=== PATIENT | male | born 1975 | race Two or more races ===

== ENCOUNTER → 2022-08-17 13:19 | Outpatient (BNVA) | payer SELFPAY | PROVIDERS: Visit Provider Internal Medicine | DX: Z02.79 Encounter for issue of other medical certificate (principal) ==

== ENCOUNTER 2023-08-09 11:10 | Outpatient (AMB) | payer OTHER, SELFPAY ==
--- NOTE | 2023-08-09 11:19 | MHC.PC.OV ---
Vital Signs 08/09/23 11:20 08/09/23 11:54 Height 5 ft 10 in Weight 335 lb BMI 48.1 BP 160/102 H 150/100 H Blood Pressure Location Lt brachial Position Sitting Pulse 97 Pulse Source Pulse Oximeter Pulse Oximetry (%) 97 Oxygen Delivery Method Room Air Intake Visit Reasons: New patient-requesting physical Intake Note: New patient, physical request Talent Coordinator Required: No Accompanied by: Self / Same As Patient Allergies CT dye Allergy (Unknown, Uncoded 08/09/23 11:33) shellfish allergy nuts Allergy (Unknown, Uncoded 08/09/23 11:33) itching shellfish Allergy (Unknown, Uncoded 08/09/23 11:33) unknown, +allergy test Medication List - Last Reconciled 08/09/23 by Eddie Blas PA-C No Known Home Meds Tobacco use date assessed: 08/09/23 Dental Screening Dental Screen Date: 08/09/23 Did you have a dental visit in the last 12 months?: Yes Did you have a dental problem in the last 6 months where you did not have access to dental care?: No Was dental information given to patient?: Patient has dentist HPI New patient-requesting physical HPI Details Patient is a 47-year-old male here today for re-establishing care/ annual physical. Patient's past medical history significant for hypertension, obesity, Torres. .. Obesity: Patient noted elevated BMI of 48.1. He does understand his diet has been very poor. Has been able to lose a significant amount of weight in the past with reducing his carbohydrates and sugar in his diet. .. Elevated blood pressure: Noted elevated blood pressure readings today in office. Likely related to his obesity. Not interested in starting medication at this time would like to work on lifestyle modifications Colon cancer screening: Will be considering colonoscopy .. Vaccines: Up-to-date with COVID vaccine, needs new tetanus vaccine, considering flu vaccine PFSH Surgical History No pertinent past surgical history Family History Mother Hypertension Mental health disorder Father Diabetes Social History (Updated 08/09/23 @ 11:39 by Eddie Blas PA-C) Housing: House Alcohol intake: never Patient Tobacco Use Status: Never used Tobacco e-Cigarette/Vaping Use: Never Used Second Hand Smoke Exposure: No service: No Current occupational status: employed Current occupation: [employer] Current occupational exposures/hazards: No Cognitive needs: No Hearing needs: No Vision needs: No Questionnaire PHQ-9 Over the last 2 weeks, how often have you been bothered by any of the following problems? 1. Little interest or pleasure in doing things: not at all 2. Feeling down, depressed, or hopeless: not at all 3. Trouble falling or staying asleep, or sleeping too much: not at all 4. Feeling tired or having little energy: not at all 5. Poor appetite or overeating: not at all 6. Feeling bad about yourself - or that you are a failure or have let yourself or your family down: not at all 7. Trouble concentrating on things, such as reading the newspaper or watching television: not at all 8. Moving or speaking so slowly that other people could have noticed. Or the opposite - being so fidgety or restless that you have been moving around a lot more than usual: not at all 9. Thoughts that you would be better off or of hurting yourself in some way: not at all Total score: 0 Depression Screening Interpretation: Negative [id number] - PHQ-9 Billing: Yes Source: Developed by Drs. Danny Connolly, Ramonita Flores, Woody Buchanan and colleagues, with an educational cleopatra from [employer]. Thrive Questionnaire Date Thrive assessed: 08/09/23 I am a: Patient What is your living situation today?: I have a steady place to live Within the past 12 months, did the food you bought not last and you didn't have the money to get more?: Never true Within the past 12 months, did you worry whether your food would run out before you got money to buy more?: Never true Do you have trouble paying for medicines?: No Do you have trouble getting transportation to medical appointments?: No Do you have trouble paying your heating and electricity bill?: No Do you have trouble taking care of your child, family member or friend?: No Do you have trouble with day-to-day activities such as bathing, preparing meals, shopping, managing finances, etc.?: No Are you currently unemployed and looking for a job?: No Are you interested in more education?: No Please select the resources that you would like help with: None Currently or been in a relationship where the following occur: no concerns reported AUDIT C Alcohol Use Questionnaire (AUDIT-C) 1. How often do you have a drink containing alcohol?: Never Total Score: 0 SUBHASH-7 AMB Questionnaire SUBHASH-7 Date SUBHASH - 7 assessed: 08/09/23 Feeling nervous, anxious, or on edge: 0 = Not at all Not being able to stop or control worryin = Not at all Worrying too much about different things: 0 = Not at all Trouble relaxin = Not at all Being so restless that it is hard to sit still: 0 = Not at all Becoming easily annoyed or irritable: 0 = Not at all Feeling afraid as if something awful might happen: 0 = Not at all Total SUBHASH-7 score (0-4 normal; 5-9 mild; 10-14 moderate; 15-21 severe): 0 Source: Developed by Drs. Danny Connolly, Ramonita Flores, Woody Buchanan and colleagues, with an educational cleopatra from [employer]. Review of Systems Const Denies body aches, Denies chills, Denies excessive sweating, Denies fatigue, Denies fever(s) and Denies headache(s) Eyes Denies blurry vision ENT Denies dysphagia, Denies vertigo, Denies dizziness, Denies headache(s), Denies hearing loss and Denies tinnitus Card Denies chest pain, Denies chest pain with activity, Denies syncope, Denies irregular heart rhythm and Denies dyspnea Resp Denies chest congestion, Denies cough, Denies hemoptysis, Denies dyspnea and Denies wheezing GI Denies abdominal pain, Denies melena, Denies hematochezia, Denies coffee ground emesis, Denies dysphagia, Denies diarrhea, Denies nausea and Denies vomiting Denies difficulty urinating, Denies dysuria, Denies urinary frequency, Denies urinary hesitancy and Denies urinary urgency Musc Denies arthralgias, Denies limited range of motion, Denies muscle cramps and Denies muscle weakness Skin/Breast Denies rash and Denies skin ulcer Neuro Denies Abnormal speech present, Denies confusion, Denies vertigo, Denies dizziness, Denies syncope, Denies headache(s), Denies memory loss and Denies seizure-like activity Psych Denies anxiety, Denies confusion, Denies depression, Denies memory loss, Denies panic attacks and Denies paranoia Endo Denies excessive sweating, Denies fatigue, Denies flushing, Denies polydipsia and Denies polyuria Aller/Immun Denies wheezing Physical exam (Primary Care) Vital Signs: Last Vital Signs Pulse 97 08/09/23 11:20 BP 150/100 H 08/09/23 11:54 Pulse Ox 97 08/09/23 11:20 Oxygen Delivery Method Room Air 08/09/23 11:20 BMI result Body Mass Index 48.1 BMI Assessment/Plan discussion: High Tobacco/Smoking Status: Tobacco use Status Tobacco use date assessed 08/09/23 08/09/23 11:27 Patient Tobacco Use Status Never used Tobacco 08/09/23 11:39 e-Cigarette/Vaping Use Never Used 08/09/23 11:39 PHQ-9: PHQ-9 Score PHQ-9: Total score 0 08/09/23 16:23 Depression Screening Interpretation: Negative Thrive Assessment: Date of Thrive Assessment Date Thrive assessed 08/09/23 08/09/23 11:27 Currently or been in a relationship where the following occur: no concerns reported Const Other: Morbidly obese General: cooperative, comfortable, no acute distress, alert and awake; No confusion Orientation/consciousness: oriented to person, oriented to place, patient oriented x3 and No confusion HENMT Head: Yes normocephalic Ears: external ears normal and TM's normal bilaterally Face and sinus: No sinus tenderness Mouth: Normal oral and palatal mucosa present and tongue normal Teeth and gingiva: dentition normal and gingiva normal Throat: Yes posterior oropharynx normal, Yes tonsils normal and Yes uvula midline Eyes Conjunctivae: conjunctivae normal Sclerae: sclerae normal Pupils: Equal, round and reactive pupils present EOM: EOMs intact bilaterally Direct Ophthalmoscopy: No no photophobia Neck Neck: Yes no lymphadenopathy, No tender and Yes no JVD Thyroid: Thyroid normal Carotids: no bruits Chest Chest palpation & inspection: no tenderness Resp Effort & Inspection: normal respiratory effort, no audible wheezes, not labored and no stridor Auscultation: no crackles, no rales, no rhonchi and no wheezes Cardio Jugular venous distension: no JVD Rate: regular rate, not bradycardic and not tachycardic Rhythm: regular rhythm Bruits: no carotid bruits Peripheral pulses: Peripheral pulses 2+ throughout GI Inspection: Yes normal to inspection, No abdominal wall ecchymosis and No visible herniation Palpation (GI): Soft to palpation, nontender, no guarding, not rigid and No hepatosplenomegaly present Auscultation: normoactive bowel sounds General: Yes no CVA tenderness Back/Spine/Pelvis Back: no CVA tenderness and No back tenderness Cervical Spine: cervical ROM normal Thoracic/Lumbar Spine: thoracic and lumbar spine normal to inspection, straight leg raise negative bilaterally, No thoraco-lumbar ROM limited and No lumbar spinal tenderness Skin Lesions: no lesions Rashes: no rashes Wounds: no wounds Neuro General: oriented to person, oriented to place, patient oriented x3, CN's II-XI intact bilaterally and No confusion Cranial nerves: Yes Equal, round and reactive pupils present and Yes Normal accommodation reflex present Cognition (Neuro): normal cognition Speech: No Abnormal speech present Gait exam (Neuro): Normal gait present Motor exam (neuro): 5/5 motor strength present throughout Extrem Right upper extremity: full ROM; no cyanosis Left upper extremity: full ROM; no cyanosis Right lower extremity: no edema Left lower extremity: no edema Psych Appearance: grossly normal Mental Status: mental status grossly normal Affect: normal affect Attitude: cooperative Thought process: Normal thought process present Assessment and Plan Assessment & Plan (1) Annual physical exam: Code(s): Z00.00 - Encounter for general adult medical examination without abnormal findings (2) Obese: Code(s): E66.9 - Obesity, unspecified Qualifiers: Body mass index: BMI 45.0-49.9 Obesity classification: adult class 3 (BMI >= 40) Obesity type: due to excess calories Serious obesity comorbidity presence: without serious comorbidity Qualified Code(s): E66.01 - Morbid (severe) obesity due to excess calories; Z68.42 - Body mass index [BMI] 45.0-49.9, adult Plan: Patient does understand his BMI is well over 40 will work on being more physically active and adapting to better eating habits to reduce his weight. (3) Elevated blood pressure reading: Code(s): R03.0 - Elevated blood-pressure reading, without diagnosis of hypertension Plan: Noted elevated blood pressure readings today in office. Has had history of elevated blood pressure readings. Not interested in starting blood pressure medication at this time would like to work on lifestyle modifications on reducing his high blood pressure. Goal blood pressure to be below 140/90 (4) Screening for diabetes mellitus (DM): Code(s): Z13.1 - Encounter for screening for diabetes mellitus Orders: Orders Comprehensive [facility]. Panel Fast Today Z13.1 - Encounter for screening for diabetes mellitus TDaP Immunization 08/09/23 E66.01 - Morbid (severe) obesity due to excess calories, Z23 - Encounter for immunization, Z68.42 - Body mass index [BMI] 45.0-49.9, adult Complete Blood Count no Diff Today Z13.1 - Encounter for screening for diabetes mellitus ABO RH Type Today E66.01 - Morbid (severe) obesity due to excess calories, Z68.42 - Body mass index [BMI] 45.0-49.9, adult Medications: New Boostrix Tdap (diphth,pertus(acell),tetanus) 0.5 mL IM ONCE 0.5 mL 0RF NS E66.01 - Morbid (severe) obesity due to excess calories, Z23 - Encounter for immunization, Z68.42 - Body mass index [BMI] 45.0-49.9, adult Coding Level of Care Code New Pt Prev Care 40-64y(67556) Diagnoses Annual physical exam Z00.00 Class 3 severe obesity due to excess calories without serious comorbidity with body mass index (BMI) of 45.0 to 49.9 in adult E66.01; Z68.42 Body mass index: BMI 45.0-49.9 Obesity classification: adult class 3 (BMI >= 40) Obesity type: due to excess calories Serious obesity comorbidity presence: without serious comorbidity Elevated blood pressure reading R03.0 Screening for diabetes mellitus (DM) Z13.1
[2023-08-09 11:20] VITALS: BP 160/102; PULSE 97; O2SAT 97; BMI 48.1
[2023-08-09 11:54] VITALS: BP 150/100
== END 2023-08-09 11:57 | disposition home or self-care (01) ==
PROVIDERS: PCP Physician Assistant; Visit Provider Physician Assistant
DX: Z00.00 Encounter for general adult medical examination without abnormal findings (principal); E66.01 Morbid (severe) obesity due to excess calories; Z68.42 Body mass index [BMI] 45.0-49.9, adult; R03.0 Elevated blood-pressure reading, without diagnosis of hypertension; Z13.1 Encounter for screening for diabetes mellitus
CPT/HCPCS: 99386

== ENCOUNTER 2023-08-13 07:18 | Outpatient (REF) | payer OTHER, SELFPAY ==
[2023-08-13 08:05] LABS: Hematocrit 50.7 % (42.0-52.0); Hemoglobin 17.3 g/dl (14.0-18.0); Mean Corpuscular HGB Conc 34.1 g/dl (31.0-36.0); Mean Corpuscular Hemoglobin 29.1 pg (27.0-33.0); Mean Corpuscular Volume 85.4 fL (80.0-98.0); Mean Platelet Volume 10.2 fL (9.4-12.4); Platelet Count 300 X10*3/uL (160-400); Red Blood Count 5.94 X10*6/uL (4.60-5.80); Red Cell Distribution Width 12.5 % (11.0-16.0); White Blood Count 8.2 X10*3/uL (4.8-10.8)
[2023-08-13 08:25] LABS: Alanine Aminotransferase 62 U/L (0-40); Alkaline Phosphatase 50 U/L (39-117); Anion Gap 14 (12-20); Aspartate Amino Transferase 28 U/L (5-37); Bilirubin Total 0.9 mg/dL (0.0-1.0); Blood Urea Nitrogen 14 mg/dL (9-16); Calcium 9.9 mg/dL (8.4-10.2); Carbon Dioxide 22 mmol/L (22-29); Chloride 108 mmol/L (96-108); Estimated Glomerular Filt Rate > 60; Glucose Fasting 113 mg/dL (60-99); Potassium 3.8 mmol/L (3.3-5.1); Sodium 140 mmol/L (135-145); Total Protein 6.8 g/dL (6.5-8.0)
== END 2023-08-13 07:19 | disposition home or self-care (01) ==
LOC: HO.LAB 07:18
PROVIDERS: PCP Physician Assistant; Visit Provider Physician Assistant
DX: E66.01 Morbid (severe) obesity due to excess calories (principal); Z68.42 Body mass index [BMI] 45.0-49.9, adult; Z13.1 Encounter for screening for diabetes mellitus
CPT/HCPCS: 36415; 80053; 85027; 86900; 86901

== ENCOUNTER 2023-10-09 11:43 | Outpatient (AMB) | payer OTHER, SELFPAY ==
[2023-10-09 11:44] VITALS: BP 168/90; PULSE 96; O2SAT 98; BMI 47.2
--- NOTE | 2023-10-09 11:44 | MHC.PC.OV ---
Vital Signs 10/09/23 11:44 10/09/23 12:42 Height 5 ft 10 in Weight 329 lb BMI 47.2 BP 168/90 H 145/99 H Blood Pressure Location Lt brachial Position Sitting Pulse 96 Pulse Source Pulse Oximeter Pulse Oximetry (%) 98 Oxygen Delivery Method Room Air Intake Visit Reasons: f/u blood pressure / weight Educational Technologist Required: No Accompanied by: Self / Same As Patient Allergies CT dye Allergy (Unknown, Uncoded 10/09/23 12:27) shellfish allergy nuts Allergy (Unknown, Uncoded 10/09/23 12:27) itching shellfish Allergy (Unknown, Uncoded 10/09/23 12:27) unknown, +allergy test Medication List - Last Reconciled 10/09/23 by Eddie Blas PA-C amlodipine 5 mg PO DAILY 30 days Tobacco use date assessed: 08/09/23 Dental Screening Dental Screen Date: 10/09/23 Did you have a dental visit in the last 12 months?: Yes Did you have a dental problem in the last 6 months where you did not have access to dental care?: No Was dental information given to patient?: Patient has dentist HPI f/u blood pressure / weight HPI Details Patient is a 48-year-old male here today for follow-up visit Patient's past medical history significant for hypertension, obesity, Torres. .. Obesity: Has lost a few lb since last office visit. He reduced his serial intake and has been trying to be more physically active. He otherwise admits that overall his diet is poor. He is not interested in weight management program Hypertension: Patient was started on amlodipine for his high blood pressure. Today in office blood pressure still elevated. PLAN: Will increase his dose of amlodipine to 10 mg Laboratory Tests 02/07/19 02/07/19 08/13/23 07:41 07:41 07:37 RBC Hgb 17.3 Fasting Glucose 96 Hgb A1c (Clinic) ALT 55 H 62 H Alkaline Phosphata se 50 08/13/23 10/09/23 07:37 12:24 RBC 5.94 H Hgb Fasting Glucose 113 H Hgb A1c (Clinic) 5.5 ALT Alkaline Phosphata se PFSH Surgical History No pertinent past surgical history Family History Mother Hypertension Mental health disorder Father Diabetes Housing: House Alcohol intake: never Patient Tobacco Use Status: Never used Tobacco e-Cigarette/Vaping Use: Never Used Second Hand Smoke Exposure: No service: No Current occupational status: employed Current occupation: [employer] Current occupational exposures/hazards: No Cognitive needs: No Hearing needs: No Vision needs: No Questionnaire Thrive Questionnaire Date Thrive assessed: 08/09/23 SUBHASH-7 AMB Questionnaire SUBHASH-7 Date SUBHASH - 7 assessed: 08/09/23 Source: Developed by Drs. aDnny Connolly, Ramonita Flores, Woody Buchanan and colleagues, with an educational cleopatra from [employer]. Review of Systems Const Denies headache(s) Eyes Denies loss of vision ENT Denies vertigo, Denies dizziness, Denies headache(s) and Denies sore throat Card Denies chest pain, Denies leg edema and Denies lightheadedness Resp Denies cough, Denies hemoptysis and Denies wheezing GI Denies abdominal pain, Denies melena, Denies constipation, Denies diarrhea and Denies vomiting Denies dysuria, Denies urinary frequency and Denies urinary urgency Musc Denies arthralgias, Denies joint swelling, Denies numbness and Denies tingling Neuro Denies Abnormal speech present, Denies behavioral changes, Denies vertigo, Denies dizziness, Denies headache(s), Denies loss of vision, Denies memory loss, Denies numbness and Denies tingling Psych Denies anxiety, Denies behavioral changes, Denies depression, Denies memory loss and Denies panic attacks Monster/Lymph Denies easy bleeding and Denies easy bruising Aller/Immun Denies wheezing Physical exam (Primary Care) Vital Signs: Last Vital Signs Pulse 96 10/09/23 11:44 BP 145/99 H 10/09/23 12:42 Pulse Ox 98 10/09/23 11:44 Oxygen Delivery Method Room Air 10/09/23 11:44 BMI result Body Mass Index 47.2 BMI Assessment/Plan discussion: High Tobacco/Smoking Status: Tobacco use Status Tobacco use date assessed 09/21/23 11/21/23 11:45 Patient Tobacco Use Status Never used Tobacco 10/09/23 11:45 e-Cigarette/Vaping Use Never Used 10/09/23 11:45 Thrive Assessment: Date of Thrive Assessment Date Thrive assessed 08/09/23 10/09/23 11:45 Const Other: Morbidly obese General: no acute distress, alert and awake Nutritional Appearance: well nourished Orientation/consciousness: oriented to person, oriented to place and oriented to time HENMT Ears: TM's normal bilaterally General nose exam: Normal nasal mucous membranes and turbinates present Eyes Conjunctivae: conjunctivae normal Sclerae: sclerae normal Pupils: Equal, round and reactive pupils present Neck Neck: Yes no lymphadenopathy and Yes no JVD Thyroid: Thyroid normal Carotids: no bruits Resp Effort & Inspection: normal respiratory effort and not tachypneic Auscultation: no crackles, no rales, no rhonchi and no wheezes Cardio Rate: regular rate Rhythm: regular rhythm Heart sounds: no murmurs and normal S1 and S2 GI Palpation (GI): Soft to palpation, nontender, no hepatomegaly and no splenomegaly Auscultation: normal bowel sounds Skin General skin exam: no rashes or lesions noted and dry skin Neuro General: oriented to person, oriented to place and oriented to time Cranial nerves: Yes Equal, round and reactive pupils present Speech: No Abnormal speech present Gait exam (Neuro): Normal gait present Motor exam (neuro): no tremor noted Extrem Right upper extremity: full ROM Left upper extremity: full ROM Right lower extremity: full ROM; no edema Left lower extremity: full ROM; no edema Psych Mental Status: mental status grossly normal Speech and movement: Normal speech and movement present Affect: normal affect Attitude: cooperative Thought process: Normal thought process present Results AMB Hemoglobin A1c AMB Hemoglobin A1c 5.5 % Last Edit by NAVNEET Zhu on 10/09/23 12:24 Results Reviewed Results Reviewed: Laboratory Last Values Hgb A1c (Clinic) 5.5 % (4.0-6.0) 10/09/23 12:24 Assessment and Plan Assessment & Plan (1) HTN (hypertension): Code(s): I10 - Essential (primary) hypertension Qualifiers: Hypertension type: primary hypertension Qualified Code(s): I10 - Essential (primary) hypertension Plan: Patient's blood pressure elevated today in office. Will increase his dose of amlodipine to maximal dose 10 mg. Advised to continue monitoring his blood pressure at home. Also advised on lifestyle modifications on reducing sugars and salt in his diet. Goal blood pressures to be below 140/90 (2) Obese: Code(s): E66.9 - Obesity, unspecified Qualifiers: Body mass index: BMI 45.0-49.9 Obesity classification: adult class 3 (BMI >= 40) Obesity type: due to excess calories Serious obesity comorbidity presence: without serious comorbidity Qualified Code(s): E66.01 - Morbid (severe) obesity due to excess calories; Z68.42 - Body mass index [BMI] 45.0-49.9, adult Plan: Patient does understand his BMI is well over 40 will continue working on being more physically active and adapting to better eating habits to reduce his weight. Again he is not interested in speaking with a dietitian or professional weight management program as he believes he can lose weight on his own. Orders: Orders AMB Hemoglobin A1c 10/09/23 Z13.1 - Encounter for screening for diabetes mellitus Medications: New amlodipine 10 mg PO DAILY 90 days 90 tabs 1RF I10 - Essential (primary) hypertension Discontinued amlodipine Discontinued Reason: Doctor's Order 5 mg PO DAILY 30 days 30 tabs 1RF I10 - Essential (primary) hypertension Coding Level of Care Code Est Pt Level 4 (70694) Diagnoses Primary hypertension I10 Hypertension type: primary hypertension Class 3 severe obesity due to excess calories without serious comorbidity with body mass index (BMI) of 45.0 to 49.9 in adult E66.01; Z68.42 Body mass index: BMI 45.0-49.9 Obesity classification: adult class 3 (BMI >= 40) Obesity type: due to excess calories Serious obesity comorbidity presence: without serious comorbidity
[2023-10-09 12:42] VITALS: BP 145/99
== END 2023-10-09 12:47 | disposition home or self-care (01) ==
PROVIDERS: PCP Physician Assistant; Visit Provider Physician Assistant
DX: Z13.1 Encounter for screening for diabetes mellitus (principal)
CPT/HCPCS: 83036; 99214

== ENCOUNTER 2024-02-07 08:14 | Outpatient (AMB) | payer OTHER, SELFPAY ==
--- NOTE | 2024-02-07 08:22 | A.OFFPC_ITS ---
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 Accompanied by: Self / Same As Patient Allergies amlodipine Adverse Reaction (Intermediate, Verified 02/07/24 08:34) ineffective CT dye Allergy (Unknown, Uncoded 02/07/24 08:29) shellfish allergy nuts Allergy (Unknown, Uncoded 02/07/24 08:29) itching shellfish Allergy (Unknown, Uncoded 02/07/24 08:29) unknown, +allergy test Medication List - Last Reconciled 02/07/24 by Eddie Blas PA-C amlodipine 10 mg PO DAILY 90 days Tobacco use date assessed: 02/07/24 Dental Screening Dental Screen Date: 02/07/24 Did you have a dental visit in the last 12 months?: No Did you have a dental problem in the last 6 months where you did not have access to dental care?: No Was dental information given to patient?: Patient has dentist HPI f/u weight check / HTN HPI Details Patient is a 48-year-old male here today for follow-up visit Patient's past medical history significant for hypertension, obesity, Torres. .. Obesity: Has gained a few lb since last office visit. He reduced his serial intake and has been trying to be more physically active. He otherwise admits that overall his diet is poor. He is not interested in weight management program Hypertension: Patient was started on amlodipine for his high blood pressure. He has been monitoring his blood pressure at home and still getting readings 140s to 160s systolic. Stopped using amlodipine feels his blood pressures are a bit better 150 systolic. Today in office blood pressure still elevated. PLAN: He would like to work extensively on lifestyle modifications as he is questioning whether blood pressure medications are causing him side effects. [facility] Surgical History No pertinent past surgical history Family History Mother Hypertension Mental health disorder Father Diabetes Social History Housing: House Alcohol intake: never Patient Tobacco Use Status: Never used Tobacco e-Cigarette/Vaping Use: Never Used Second Hand Smoke Exposure: No service: No Current occupational status: employed Current occupation: [employer] Current occupational exposures/hazards: No Cognitive needs: No Hearing needs: No Vision needs: No Questionnaire PHQ-9 Over the last 2 weeks, how often have you been bothered by any of the following problems? 1. Little interest or pleasure in doing things: not at all 2. Feeling down, depressed, or hopeless: not at all 3. Trouble falling or staying asleep, or sleeping too much: not at all 4. Feeling tired or having little energy: not at all 5. Poor appetite or overeating: not at all 6. Feeling bad about yourself - or that you are a failure or have let yourself or your family down: not at all 7. Trouble concentrating on things, such as reading the newspaper or watching television: not at all 8. Moving or speaking so slowly that other people could have noticed. Or the opposite - being so fidgety or restless that you have been moving around a lot more than usual: not at all 9. Thoughts that you would be better off or of hurting yourself in some way: not at all Total score: 0 Depression Screening Interpretation: Negative Depression Screening Done: Yes 12022 - PHQ-9 Billing: Yes Source: Developed by Drs. Danny Connolly, Ramonita Flores, Woody Buchanan and colleagues, with an educational cleopatra from [employer]. Thrive Questionnaire Date Thrive assessed: 02/07/24 I am a: Patient What is your living situation today?: I have a steady place to live Within the past 12 months, did the food you bought not last and you didn't have the money to get more?: Never true Within the past 12 months, did you worry whether your food would run out before you got money to buy more?: Never true Do you have trouble paying for medicines?: No Do you have trouble getting transportation to medical appointments?: No Do you have trouble paying your heating and electricity bill?: No Do you have trouble taking care of your child, family member or friend?: No Do you have trouble with day-to-day activities such as bathing, preparing meals, shopping, managing finances, etc.?: No Are you currently unemployed and looking for a job?: No Are you interested in more education?: No Please select the resources that you would like help with: None THRIVE Score: 0 AUDIT C Alcohol Use Questionnaire (AUDIT-C) 1. How often do you have a drink containing alcohol?: Never Total Score: 0 SUBHASH-7 AMB Questionnaire SUBHASH-7 Date SUBHASH - 7 assessed: 02/07/24 Feeling nervous, anxious, or on edge: 0 = Not at all Not being able to stop or control worryin = Not at all Worrying too much about different things: 0 = Not at all Trouble relaxin = Not at all Being so restless that it is hard to sit still: 0 = Not at all Becoming easily annoyed or irritable: 0 = Not at all Feeling afraid as if something awful might happen: 0 = Not at all Total SUBHASH-7 score (0-4 normal; 5-9 mild; 10-14 moderate; 15-21 severe): 0 Source: Developed by Drs. Danny Connolly, Ramonita Flores, Woody Buchanan and colleagues, with an educational cleopatra from [employer]. SUBHASH-7 Assessment Billing SUBHASH-7 Assessment Tool: SUBHASH-7 Assessment 05643 Review of Systems Const Denies headache(s) Eyes Denies loss of vision ENT Denies vertigo, Denies dizziness, Denies headache(s) and Denies sore throat Card Denies chest pain, Denies leg edema and Denies lightheadedness Resp Denies cough, Denies hemoptysis and Denies wheezing GI Denies abdominal pain, Denies melena, Denies constipation, Denies diarrhea and Denies vomiting Denies dysuria, Denies urinary frequency and Denies urinary urgency Musc Denies arthralgias, Denies joint swelling, Denies numbness and Denies tingling Neuro Denies Abnormal speech present, Denies behavioral changes, Denies vertigo, Denies dizziness, Denies headache(s), Denies loss of vision, Denies memory loss, Denies numbness and Denies tingling Psych Denies anxiety, Denies behavioral changes, Denies depression, Denies memory loss and Denies panic attacks Monster/Lymph Denies easy bleeding and Denies easy bruising Aller/Immun Denies wheezing Physical exam (Primary Care) Vital Signs: Last Vital Signs BP 142/90 H 02/07/24 08:23 BMI result Body Mass Index 48.1 Tobacco/Smoking Status: Tobacco use Status Tobacco use date assessed 02/07/24 02/07/24 08:28 Patient Tobacco Use Status Never used Tobacco 02/07/24 08:28 e-Cigarette/Vaping Use Never Used 02/07/24 08:28 PHQ-9: PHQ-9 Score PHQ-9: Total score 0 02/07/24 08:33 Depression Screening Interpretation: Negative Thrive Assessment: Date of Thrive Assessment Date Thrive assessed 02/07/24 02/07/24 08:28 Const General: healthy appearing, no acute distress, alert and awake Nutritional Appearance: well nourished Orientation/consciousness: oriented to person, oriented to place and oriented to time HENMT Ears: TM's normal bilaterally General nose exam: Normal nasal mucous membranes and turbinates present Eyes Conjunctivae: conjunctivae normal Sclerae: sclerae normal Pupils: Equal, round and reactive pupils present Neck Neck: Yes no lymphadenopathy and Yes no JVD Thyroid: Thyroid normal Carotids: no bruits Resp Effort & Inspection: normal respiratory effort and not tachypneic Auscultation: no crackles, no rales, no rhonchi and no wheezes Cardio Rate: regular rate Rhythm: regular rhythm Heart sounds: no murmurs and normal S1 and S2 GI Palpation (GI): Soft to palpation, nontender, no hepatomegaly and no splenomegaly Auscultation: normal bowel sounds Skin General skin exam: no rashes or lesions noted and dry skin Neuro General: oriented to person, oriented to place and oriented to time Cranial nerves: Yes Equal, round and reactive pupils present Speech: No Abnormal speech present Gait exam (Neuro): Normal gait present Motor exam (neuro): no tremor noted Extrem Right upper extremity: full ROM Left upper extremity: full ROM Right lower extremity: full ROM; no edema Left lower extremity: full ROM; no edema Psych Mental Status: mental status grossly normal Speech and movement: Normal speech and movement present Affect: normal affect Attitude: cooperative Thought process: Normal thought process present Assessment and Plan Assessment & Plan (1) HTN (hypertension): Code(s): I10 - Essential (primary) hypertension Qualifiers: Hypertension type: primary hypertension Qualified Code(s): I10 - Essential (primary) hypertension Plan: Patient's blood pressure remains elevated today in office. Advised on transitioning to a new blood pressure medication namely lisinopril 5 mg though patient declines at this time. He will like to work extensively on lifestyle modifications/ dietary modifications to lose weight to control his blood pressure. Advised on low-sodium and low sugar diet. Advised to continue monitoring blood pressure with goal blood pressure to be below 140/90. Will call if he decides he wants to try lisinopril to manage his blood pressure. Will follow-up with patient 8 weeks to evaluate his blood pressure readings and if still remains consistently above 140/90 will strongly consider starting new blood pressure medication. (2) Obese: Code(s): E66.9 - Obesity, unspecified Qualifiers: Obesity type: due to excess calories Obesity classification: adult class 3 (BMI >= 40) Serious obesity comorbidity presence: without serious comorbidity Body mass index: BMI 45.0-49.9 Qualified Code(s): E66.01 - Morbid (severe) obesity due to excess calories; Z68.42 - Body mass index [BMI] 45.0- 49.9, adult Plan: He does understand his BMI is over 40, unfortunately gained weight since last office visit. He does admit to some dietary indiscretion with sugar. He does not do any formal physical activity. He does have a somewhat physically demanding job. Orders: Orders Microalbumin, Random (w Creat) Today I10 - Essential (primary) hypertension Comprehensive [place]. Panel Fast Today I10 - Essential (primary) hypertension Prostate Specific Antigen Scr Today I10 - Essential (primary) hypertension, Z12.5 - Encounter for screening for malignant neoplasm of prostate Referrals Gastroenterology Referral Z12.11 - Encounter for screening for malignant neoplasm of colon Medications: Discontinued amlodipine Discontinued Reason: Doctor's Order 10 mg PO DAILY 90 days 90 tabs 1RF I10 - Essential (primary) hypertension Coding Level of Care Code Est Pt Level 4 (18366) Diagnoses Primary hypertension I10 Hypertension type: primary hypertension Class 3 severe obesity due to excess calories without serious comorbidity with body mass index (BMI) of 45.0 to 49.9 in adult E66.01; Z68.42 Obesity type: due to excess calories Obesity classification: adult class 3 (BMI >= 40) Serious obesity comorbidity presence: without serious comorbidity Body mass index: BMI 45.0-49.9 Additional Codes SUBHASH-7 Assessment Billing - SUBHASH-7 Assessment Tool: SUBHASH-7 Assessment 54266 ([id number])
[2024-02-07 08:23] VITALS: BP 142/90; BMI 48.1
== END 2024-02-07 09:20 | disposition home or self-care (01) ==
PROVIDERS: PCP Physician Assistant; Visit Provider Physician Assistant
DX: I10 Essential (primary) hypertension (principal); E66.01 Morbid (severe) obesity due to excess calories; Z68.42 Body mass index [BMI] 45.0-49.9, adult
CPT/HCPCS: 99214

== ENCOUNTER 2024-03-27 08:40 | Outpatient (REF) | payer OTHER, SELFPAY ==
[2024-03-27 10:39] LABS: Alanine Aminotransferase 55 U/L (0-40); Albumin Level 3.9 g/dL (3.5-5.0); Alkaline Phosphatase 56 U/L (39-117); Anion Gap 10 (12-20); Aspartate Amino Transferase 26 U/L (5-37); Bilirubin Total 0.5 mg/dL (0.0-1.0); Blood Urea Nitrogen 15 mg/dL (9-16); Calcium 9.9 mg/dL (8.4-10.2); Carbon Dioxide 24 mmol/L (22-29); Chloride 106 mmol/L (96-108); Estimated Glomerular Filt Rate > 60; Glucose Fasting 99 mg/dL (60-99); Potassium 4.3 mmol/L (3.3-5.1); Sodium 136 mmol/L (135-145); Total Protein 6.5 g/dL (6.5-8.0)
[2024-03-27 10:58] LABS: Prostate Specific Antigen Scr 1.13 ng/mL (<0.05-4.0)
[2024-03-27 11:23] LABS: Creatinine Urine 152.05 mg/dL; Microalbum/Creatinine Ratio Ur 3.2 ug/mg cr (<30)
== END 2024-03-27 08:41 | disposition home or self-care (01) ==
LOC: HO.LAB 08:40
PROVIDERS: PCP Physician Assistant; Visit Provider Physician Assistant
DX: Z12.5 Encounter for screening for malignant neoplasm of prostate (principal); I10 Essential (primary) hypertension
CPT/HCPCS: 36415; 80053; 82043; 82570; 84153

== ENCOUNTER 2024-04-03 08:38 | Outpatient (AMB) | payer OTHER, SELFPAY ==
[2024-04-03 08:49] VITALS: BP 120/84; PULSE 77; O2SAT 98; BMI 48.5
--- NOTE | 2024-04-03 08:49 | A.OFFPC_ITS ---
Vital Signs 04/03/24 08:49 Height 5 ft 10 in Weight 338 lb 2 oz BMI 48.5 BP 120/84 Blood Pressure Location Lt brachial Position Sitting Pulse 77 Pulse Source Pulse Oximeter Pulse Oximetry (%) 98 Oxygen Delivery Method Room Air Intake Visit Reasons: f/u HTN Intake Note: Patient is here to follow up on HTN and lab results. 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 Patient's past medical history significant for hypertension, obesity, Torres. .. Obesity: Has gained a few lb since last office visit. He reduced his serial intake and has been trying to be more physically active. He otherwise admits that overall his diet is poor. He is not interested in weight management program Hypertension: Patient was started on amlodipine for his high blood pressure. He has been monitoring his blood pressure at home and still getting readings 140s to 160s systolic. Stopped using amlodipine feels his blood pressures are a bit lobito. He is started using be extra-axial juice and feels that is helping his blood pressure.. Today blood pressure in office much improved. Otherwise he denies any headaches, chest pain, palpitations or dizziness. PLAN: He would like to work extensively on lifestyle modifications as he is questioning whether blood pressure medications are causing him side effects. Laboratory Tests 08/13/23 03/27/24 07:37 09:02 Fasting Glucose 113 H 99 [facility] Surgical History No pertinent past surgical history Family History Mother Hypertension Mental health disorder Father Diabetes Social History Housing: House Alcohol intake: never Patient Tobacco Use Status: Never used Tobacco e-Cigarette/Vaping Use: Never Used Second Hand Smoke Exposure: No service: No Current occupational status: employed Current occupation: [employer] Current occupational exposures/hazards: No Cognitive needs: No Hearing needs: No Vision needs: No Questionnaire Thrive Questionnaire Date Thrive assessed: 02/07/24 SUBHASH-7 AMB Questionnaire SUBHASH-7 Date SUBHASH - 7 assessed: 02/07/24 Source: Developed by Drs. Danny Connolly, Ramonita Flores, Woody Buchanan and colleagues, with an educational cleopatra from [employer]. Review of Systems Const Denies headache(s) Eyes Denies loss of vision ENT Denies vertigo, Denies dizziness, Denies headache(s) and Denies sore throat Card Denies chest pain, Denies leg edema and Denies lightheadedness Resp Denies cough, Denies hemoptysis and Denies wheezing GI Denies abdominal pain, Denies melena, Denies constipation, Denies diarrhea and Denies vomiting Denies dysuria, Denies urinary frequency and Denies urinary urgency Musc Denies arthralgias, Denies joint swelling, Denies numbness and Denies tingling Neuro Denies Abnormal speech present, Denies behavioral changes, Denies vertigo, Denies dizziness, Denies headache(s), Denies loss of vision, Denies memory loss, Denies numbness and Denies tingling Psych Denies anxiety, Denies behavioral changes, Denies depression, Denies memory loss and Denies panic attacks Monster/Lymph Denies easy bleeding and Denies easy bruising Aller/Immun Denies wheezing Physical exam (Primary Care) Vital Signs: Last Vital Signs Pulse 77 04/03/24 08:49 BP 120/84 04/03/24 08:49 Pulse Ox 98 04/03/24 08:49 Oxygen Delivery Method Room Air 04/03/24 08:49 BMI result Body Mass Index 48.5 Tobacco/Smoking Status: Tobacco use Status Tobacco use date assessed 04/03/24 04/03/24 08:52 Patient Tobacco Use Status Never used Tobacco 04/03/24 08:52 e-Cigarette/Vaping Use Never Used 04/03/24 08:52 Thrive Assessment: Date of Thrive Assessment Date Thrive assessed 02/07/24 04/03/24 08:52 Const General: healthy appearing, no acute distress, alert and awake Nutritional Appearance: well nourished Orientation/consciousness: oriented to person, oriented to place and oriented to time HENMT Ears: TM's normal bilaterally General nose exam: Normal nasal mucous membranes and turbinates present Eyes Conjunctivae: conjunctivae normal Sclerae: sclerae normal Pupils: Equal, round and reactive pupils present Neck Neck: Yes no lymphadenopathy and Yes no JVD Thyroid: Thyroid normal Carotids: no bruits Resp Effort & Inspection: normal respiratory effort and not tachypneic Auscultation: no crackles, no rales, no rhonchi and no wheezes Cardio Rate: regular rate Rhythm: regular rhythm Heart sounds: no murmurs and normal S1 and S2 GI Palpation (GI): Soft to palpation, nontender, no hepatomegaly and no splenomegaly Auscultation: normal bowel sounds Skin General skin exam: no rashes or lesions noted and dry skin Neuro General: oriented to person, oriented to place and oriented to time Cranial nerves: Yes Equal, round and reactive pupils present Speech: No Abnormal speech present Gait exam (Neuro): Normal gait present Motor exam (neuro): no tremor noted Extrem Right upper extremity: full ROM Left upper extremity: full ROM Right lower extremity: full ROM; no edema Left lower extremity: full ROM; no edema Psych Mental Status: mental status grossly normal Speech and movement: Normal speech and movement present Affect: normal affect Attitude: cooperative Thought process: Normal thought process present Assessment and Plan Assessment & Plan (1) HTN (hypertension): Code(s): I10 - Essential (primary) hypertension Qualifiers: Hypertension type: primary hypertension Qualified Code(s): I10 - Essential (primary) hypertension Plan: Patient's blood pressure improved. Has started Beet Juice. He monitors blood pressure at home quite regularly. Does report some high readings in the mornings though in the afternoons normal readings. Will continue on lifestyle modifications to control his blood pressure. He plans on using 30 lb in the next 6 months. (2) Obese: Code(s): E66.9 - Obesity, unspecified Qualifiers: Body mass index: BMI 45.0-49.9 Obesity classification: adult class 3 (BMI >= 40) Obesity type: due to excess calories Serious obesity comorbidity presence: without serious comorbidity Qualified Code(s): E66.01 - Morbid (severe) obesity due to excess calories; Z68.42 - Body mass index [BMI] 45.0- 49.9, adult Plan: He does understand his BMI is over 40, unfortunately gained weight since last office visit. He does admit to some dietary indiscretion with sugar. He does not do any formal physical activity. He does have a somewhat physically demanding job. Orders: Referrals Cologuard Test Z12.11 - Encounter for screening for malignant neoplasm of colon Coding Level of Care Code Est Pt Level 3 (49080) Diagnoses Primary hypertension I10 Hypertension type: primary hypertension Class 3 severe obesity due to excess calories without serious comorbidity with body mass index (BMI) of 45.0 to 49.9 in adult E66.01; Z68.42 Body mass index: BMI 45.0-49.9 Obesity classification: adult class 3 (BMI >= 40) Obesity type: due to excess calories Serious obesity comorbidity presence: without serious comorbidity
== END 2024-04-03 09:27 | disposition home or self-care (01) ==
PROVIDERS: PCP Physician Assistant; Visit Provider Physician Assistant
DX: I10 Essential (primary) hypertension (principal); E66.01 Morbid (severe) obesity due to excess calories; Z68.42 Body mass index [BMI] 45.0-49.9, adult
CPT/HCPCS: 99213

== ENCOUNTER → 2024-08-14 10:45 | Outpatient (BNVA) | payer SELFPAY | PROVIDERS: PCP Physician Assistant; Visit Provider Physician Assistant Medical | DX: Z02.79 Encounter for issue of other medical certificate (principal) ==

== ENCOUNTER 2024-10-07 08:32 | Outpatient (AMB) | payer OTHER, SELFPAY ==
[2024-10-07 08:42] VITALS: BP 138/92; PULSE 78; O2SAT 98; BMI 48.1
--- NOTE | 2024-10-07 08:42 | MHC.PC.OV ---
Vital Signs 10/07/24 08:42 Height 5 ft 10 in Weight 335 lb BMI 48.1 BP 138/92 H Blood Pressure Location Lt brachial Position Sitting Pulse 78 Pulse Source Pulse Oximeter Pulse Oximetry (%) 98 Oxygen Delivery Method Room Air Intake Visit Reasons: f/u Weight check/ blood pressure Allergies amlodipine Adverse Reaction (Intermediate, Verified 10/07/24 08:50) ineffective CT dye Allergy (Unknown, Uncoded 10/07/24 08:50) shellfish allergy nuts Allergy (Unknown, Uncoded 10/07/24 08:50) itching shellfish Allergy (Unknown, Uncoded 10/07/24 08:50) unknown, +allergy test Medication List - Last Reconciled 10/07/24 by Eddie Blas PA-C No Known Home Meds Tobacco use date assessed: 04/03/24 Dental Screening Dental Screen Date: 02/07/24 HPI f/u Weight check/ blood pressure HPI Details Patient is a 49-year-old male here today for follow-up visit. Patient's past medical history significant for hypertension, obesity, Torres. Right heel pain: ongoing right foot pain. The pain began in April, with no known injury or trauma. The patient describes the pain as being located at the bottom of the heel, extending towards the back of the heel, with associated tingling in the toes. Pain is worsened by prolonged standing or walking, and it can result in days where movement is severely limited. The patient has experienced similar symptoms in the past and has previously been diagnosed with plantar fasciitis and tarsal tunnel syndrome, for which a nerve conduction study was performed, and cortisone injections were utilized. However, these interventions did not provide relief, and the symptoms had temporarily resolved before returning in April. Naproxen has been tried with limited relief, and the patient uses various methods like foot massages and hot/cold treatments to self-manage the pain. .. Obesity: Has gained a few lb since last office visit. He reduced his serial intake and has been trying to be more physically active. He otherwise admits that overall his diet is poor. He is not interested in weight management program Hypertension: Stopped using amlodipine feels his blood pressures are a bit better. He is started using be beet juice and feels that is helping his blood pressure. Unfortunately the beach who has had gotten to expensive. Today blood pressure in office elevated.. Otherwise he denies any headaches, chest pain, palpitations or dizziness. PLAN: Willing to try low-dose lisinopril for better blood pressure control. [facility] Surgical History No pertinent past surgical history Family History Mother Hypertension Mental health disorder Father Diabetes Social History Housing: House Alcohol intake: never Patient Tobacco Use Status: Never used Tobacco Tobacco use type: Cigarette e-Cigarette/Vaping Use: Never Used Second Hand Smoke Exposure: No service: No Current occupational status: employed Current occupation: [employer] Current occupational exposures/hazards: No Cognitive needs: No Hearing needs: No Vision needs: No Questionnaire PHQ-9 Over the last 2 weeks, how often have you been bothered by any of the following problems? 1. Little interest or pleasure in doing things: not at all 2. Feeling down, depressed, or hopeless: not at all 3. Trouble falling or staying asleep, or sleeping too much: not at all 4. Feeling tired or having little energy: not at all 5. Poor appetite or overeating: not at all 6. Feeling bad about yourself - or that you are a failure or have let yourself or your family down: not at all 7. Trouble concentrating on things, such as reading the newspaper or watching television: not at all 8. Moving or speaking so slowly that other people could have noticed. Or the opposite - being so fidgety or restless that you have been moving around a lot more than usual: not at all 9. Thoughts that you would be better off or of hurting yourself in some way: not at all Total score: 0 Depression Screening Interpretation: Negative Depression Screening Done: Yes 40415 - PHQ-9 Billing: Yes Source: Developed by Drs. Danny Connolly, Ramonita Flores, Woody Buchanan and colleagues, with an educational cleopatra from [employer]. Thrive Questionnaire Date Thrive assessed: 02/07/24 AUDIT C Alcohol Use Questionnaire (AUDIT-C) 1. How often do you have a drink containing alcohol?: Never Total Score: 0 SUBHASH-7 AMB Questionnaire SUBHASH-7 Date SUBHASH - 7 assessed: 02/07/24 Source: Developed by Drs. Danny Connolly, Ramonita Flores, Woody Buchanan and colleagues, with an educational cleopatra from [employer]. Review of Systems Const Denies headache(s) Eyes Denies loss of vision ENT Denies vertigo, Denies dizziness, Denies headache(s) and Denies sore throat Card Denies chest pain, Denies leg edema and Denies lightheadedness Resp Denies cough, Denies hemoptysis and Denies wheezing GI Denies abdominal pain, Denies melena, Denies constipation, Denies diarrhea and Denies vomiting Denies dysuria, Denies urinary frequency and Denies urinary urgency Musc Denies arthralgias, Denies joint swelling, Denies numbness and Denies tingling Neuro Denies Abnormal speech present, Denies behavioral changes, Denies vertigo, Denies dizziness, Denies headache(s), Denies loss of vision, Denies memory loss, Denies numbness and Denies tingling Psych Denies anxiety, Denies behavioral changes, Denies depression, Denies memory loss and Denies panic attacks Monster/Lymph Denies easy bleeding and Denies easy bruising Aller/Immun Denies wheezing Physical exam (Primary Care) Vital Signs: Last Vital Signs Pulse 78 10/07/24 08:42 BP 138/92 H 10/07/24 08:42 Pulse Ox 98 10/07/24 08:42 Oxygen Delivery Method Room Air 10/07/24 08:42 BMI result Body Mass Index 48.1 BMI Assessment/Plan discussion: High BMI High, discussed plan: lifestyle, weight reduction, dietary and physical activity Tobacco/Smoking Status: Tobacco use Status Tobacco use date assessed 04/03/24 10/07/24 08:48 Patient Tobacco Use Status Never used Tobacco 10/07/24 08:48 Tobacco use type Cigarette 10/07/24 08:48 e-Cigarette/Vaping Use Never Used 10/07/24 08:48 PHQ-9: PHQ-9 Score PHQ-9: Total score 0 10/07/24 08:51 Depression Screening Interpretation: Negative Thrive Assessment: Date of Thrive Assessment Date Thrive assessed 02/07/24 10/07/24 08:48 Const General: healthy appearing, no acute distress, alert and awake Nutritional Appearance: well nourished Orientation/consciousness: oriented to person, oriented to place and oriented to time HENMT Ears: TM's normal bilaterally General nose exam: Normal nasal mucous membranes and turbinates present Eyes Conjunctivae: conjunctivae normal Sclerae: sclerae normal Pupils: Equal, round and reactive pupils present Neck Neck: Yes no lymphadenopathy and Yes no JVD Thyroid: Thyroid normal Carotids: no bruits Resp Effort & Inspection: normal respiratory effort and not tachypneic Auscultation: no crackles, no rales, no rhonchi and no wheezes Cardio Rate: regular rate Rhythm: regular rhythm Heart sounds: no murmurs and normal S1 and S2 GI Palpation (GI): Soft to palpation, nontender, no hepatomegaly and no splenomegaly Auscultation: normal bowel sounds Skin General skin exam: no rashes or lesions noted and dry skin Neuro General: oriented to person, oriented to place and oriented to time Cranial nerves: Yes Equal, round and reactive pupils present Speech: No Abnormal speech present Gait exam (Neuro): Normal gait present Motor exam (neuro): no tremor noted Extrem Right upper extremity: full ROM Left upper extremity: full ROM Right lower extremity: full ROM; no edema Left lower extremity: full ROM; no edema Psych Mental Status: mental status grossly normal Speech and movement: Normal speech and movement present Affect: normal affect Attitude: cooperative Thought process: Normal thought process present Coding Level of Care Code Est Pt Level 4 (16058) Diagnoses Primary hypertension I10 Hypertension type: primary hypertension Right Achilles tendinitis M76.61 Pain of right heel M79.671 Additional Codes PHQ-9 - 50968 - PHQ-9 Billing: Yes ([id number]) Assessment & Plan Assessment & Plan (1) HTN (hypertension): Code(s): I10 - Essential (primary) hypertension Category: Medical Qualifiers: Hypertension type: primary hypertension Qualified Code(s): I10 - Essential (primary) hypertension Plan: Initiate lisinopril 10 mg once daily. Monitor blood pressure regularly to assess the effectiveness of treatment. Consider lifestyle modifications to include dietary changes and improved sleep patterns. (2) Right Achilles tendinitis: Code(s): M76.61 - Achilles tendinitis, right leg Category: Medical Plan: Start with X-ray of the right foot and ankle to identify any underlying issues like calcaneal spurs. If x-rays are inconclusive and pain persists, consider physical therapy. If these measures are ineffective, a referral for an MRI may be necessary. Continue use of naproxen or prescribed meloxicam for pain management. (3) Pain of right heel: Code(s): M79.671 - Pain in right foot Category: Medical Plan: As above Orders: Orders XR calcaneus RT min 2V 10/07/24 M79.671 - Pain in right foot XR ankle RT 2V 10/07/24 M79.671 - Pain in right foot Microalbumin, Random (w Creat) 10/07/24 I10 - Essential (primary) hypertension Complete Blood Count no Diff 10/07/24 I10 - Essential (primary) hypertension Comprehensive [place]. Panel Fast 10/07/24 I10 - Essential (primary) hypertension Medications: New meloxicam 15 mg PO DAILY 30 tabs 0RF 30 days M76.61 - Achilles tendinitis, right leg lisinopril 10 mg PO DAILY 30 tabs 3RF 30 days I10 - Essential (primary) hypertension
== END 2024-10-07 09:12 | disposition home or self-care (01) ==
PROVIDERS: PCP Physician Assistant; Visit Provider Physician Assistant
DX: I10 Essential (primary) hypertension (principal); M76.61 Achilles tendinitis, right leg; M79.671 Pain in right foot

== ENCOUNTER → 2024-10-07 08:32 | Outpatient (BNVA) | payer OTHER, SELFPAY | PROVIDERS: PCP Physician Assistant; Visit Provider Physician Assistant | DX: I10 Essential (primary) hypertension (principal); M76.61 Achilles tendinitis, right leg; M79.671 Pain in right foot | CPT/HCPCS: 96127 ==

== ENCOUNTER 2025-01-07 08:44 | Outpatient (AMB) | payer OTHER, SELFPAY ==
--- NOTE | 2025-01-07 08:55 | MHC.PC.OV ---
Vital Signs 01/07/25 08:56 Height 5 ft 10 in Weight 333 lb BMI 47.8 BP 142/96 H Blood Pressure Location Lt brachial Position Sitting Pulse 80 Pulse Source Pulse Oximeter Temp 97.3 F Temp Source Temporal Artery Scan Pulse Oximetry (%) 95 Oxygen Delivery Method Room Air Intake Visit Reasons: f/u HTN / labs Physician Practice Coordinator Required: No Accompanied by: Self / Same As Patient Allergies amlodipine Adverse Reaction (Intermediate, Verified 01/07/25 09:05) ineffective CT dye Allergy (Unknown, Uncoded 01/07/25 09:05) shellfish allergy nuts Allergy (Unknown, Uncoded 01/07/25 09:05) itching shellfish Allergy (Unknown, Uncoded 01/07/25 09:05) unknown, +allergy test Medication List - Last Reconciled 01/07/25 by Eddie Blas PA-C lisinopril 10 mg PO DAILY 30 days meloxicam 15 mg PO DAILY 30 days Tobacco use date assessed: 01/07/25 Dental Screening Dental Screen Date: 01/07/25 Did you have a dental visit in the last 12 months?: Yes Did you have a dental problem in the last 6 months where you did not have access to dental care?: No Was dental information given to patient?: Patient has dentist HPI f/u HTN / labs HPI Details Patient is a 49-year-old male here today for follow-up visit. Patient's past medical history significant for hypertension, obesity, Torres. .. Class 3 Obesity: Has gained a few lb since last office visit. He reduced his serial intake and has been trying to be more physically active. He otherwise admits that overall his diet is poor. He is not interested in weight management program Hypertension: Patient's blood pressure slightly elevated today in office. He reports that home his blood pressures are 110-120 systolic. He has run out of refills for lisinopril recently and has not been on the medication. He is started using be beet juice and feels that is helping his blood pressure. Unfortunately the beach who has had gotten to expensive. Today blood pressure in office elevated.. Otherwise he denies any headaches, chest pain, palpitations or dizziness. . PFSH Surgical History No pertinent past surgical history Family History Mother Hypertension Mental health disorder Father Diabetes Social History Housing: House Alcohol intake: never Patient Tobacco Use Status: Never used Tobacco Tobacco use type: Cigarette e-Cigarette/Vaping Use: Never Used Second Hand Smoke Exposure: No service: No Current occupational status: employed Current occupation: [employer] Current occupational exposures/hazards: No Cognitive needs: No Hearing needs: No Vision needs: No Questionnaire PHQ-9 Over the last 2 weeks, how often have you been bothered by any of the following problems? 1. Little interest or pleasure in doing things: not at all 2. Feeling down, depressed, or hopeless: not at all 3. Trouble falling or staying asleep, or sleeping too much: not at all 4. Feeling tired or having little energy: not at all 5. Poor appetite or overeating: not at all 6. Feeling bad about yourself - or that you are a failure or have let yourself or your family down: not at all 7. Trouble concentrating on things, such as reading the newspaper or watching television: not at all 8. Moving or speaking so slowly that other people could have noticed. Or the opposite - being so fidgety or restless that you have been moving around a lot more than usual: not at all 9. Thoughts that you would be better off or of hurting yourself in some way: not at all Total score: 0 Depression Screening Interpretation: Negative Depression Screening Done: Yes 82203 - PHQ-9 Billing: Yes Source: Developed by Drs. Danny Connolly, Ramonita Flores, Woody Buchanan and colleagues, with an educational cleopatra from [employer]. Thrive Questionnaire Date Thrive assessed: 01/07/25 I am a: Patient What is your living situation today?: I have a steady place to live Within the past 12 months, did the food you bought not last and you didn't have the money to get more?: Never true Within the past 12 months, did you worry whether your food would run out before you got money to buy more?: Never true Do you have trouble paying for medicines?: No Do you have trouble getting transportation to medical appointments?: No Do you have trouble paying your heating and electricity bill?: No Do you have trouble taking care of your child, family member or friend?: No Do you have trouble with day-to-day activities such as bathing, preparing meals, shopping, managing finances, etc.?: No Are you currently unemployed and looking for a job?: No Are you interested in more education?: No Please select the resources that you would like help with: None Currently or been in a relationship where the following occur: No concerns reported THRIVE Score: 0 AUDIT C Alcohol Use Questionnaire (AUDIT-C) 1. How often do you have a drink containing alcohol?: Never 3. How often do you have six or more drinks on one occasion?: Never Total Score: 0 SUBHASH-7 AMB Questionnaire SUBHASH-7 Date SUBHASH - 7 assessed: 01/07/25 Feeling nervous, anxious, or on edge: 0 = Not at all Not being able to stop or control worryin = Not at all Worrying too much about different things: 0 = Not at all Trouble relaxin = Not at all Being so restless that it is hard to sit still: 0 = Not at all Becoming easily annoyed or irritable: 0 = Not at all Feeling afraid as if something awful might happen: 0 = Not at all Total SUBHASH-7 score (0-4 normal; 5-9 mild; 10-14 moderate; 15-21 severe): 0 Source: Developed by Drs. Danny Connolly, Ramonita Flores, Woody Buchanan and colleagues, with an educational cleopatra from [employer]. SUBHASH-7 Assessment Billing SUBHASH-7 Assessment Tool: SUBHASH-7 Assessment 87683 Review of Systems Const Denies headache(s) Eyes Denies loss of vision ENT Denies vertigo, Denies dizziness, Denies headache(s) and Denies sore throat Card Denies chest pain, Denies leg edema and Denies lightheadedness Resp Denies cough, Denies hemoptysis and Denies wheezing GI Denies abdominal pain, Denies melena, Denies constipation, Denies diarrhea and Denies vomiting Denies dysuria, Denies urinary frequency and Denies urinary urgency Musc Denies arthralgias, Denies joint swelling, Denies numbness and Denies tingling Neuro Denies Abnormal speech present, Denies behavioral changes, Denies vertigo, Denies dizziness, Denies headache(s), Denies loss of vision, Denies memory loss, Denies numbness and Denies tingling Psych Denies anxiety, Denies behavioral changes, Denies depression, Denies memory loss and Denies panic attacks Monster/Lymph Denies easy bleeding and Denies easy bruising Aller/Immun Denies wheezing Physical exam (Primary Care) Vital Signs: Last Vital Signs Temp 97.3 F 01/07/25 08:56 Pulse 80 01/07/25 08:56 BP 142/96 H 01/07/25 08:56 Pulse Ox 95 01/07/25 08:56 Oxygen Delivery Method Room Air 01/07/25 08:56 BMI result Body Mass Index 47.8 Tobacco/Smoking Status: Tobacco use Status Tobacco use date assessed 01/07/25 01/07/25 09:04 Patient Tobacco Use Status Never used Tobacco 01/07/25 08:57 Tobacco use type Cigarette 01/07/25 08:57 e-Cigarette/Vaping Use Never Used 01/07/25 08:57 PHQ-9: PHQ-9 Score PHQ-9: Total score 0 01/07/25 09:23 Depression Screening Interpretation: Negative Thrive Assessment: Date of Thrive Assessment Date Thrive assessed 01/07/25 01/07/25 09:04 Currently or been in a relationship where the following occur: No concerns reported Const General: healthy appearing, no acute distress, alert and awake Nutritional Appearance: well nourished Orientation/consciousness: oriented to person, oriented to place and oriented to time HENMT Ears: TM's normal bilaterally General nose exam: Normal nasal mucous membranes and turbinates present Eyes Conjunctivae: conjunctivae normal Sclerae: sclerae normal Pupils: Equal, round and reactive pupils present Neck Neck: Yes no lymphadenopathy and Yes no JVD Thyroid: Thyroid normal Carotids: no bruits Resp Effort & Inspection: normal respiratory effort and not tachypneic Auscultation: no crackles, no rales, no rhonchi and no wheezes Cardio Rate: regular rate Rhythm: regular rhythm Heart sounds: no murmurs and normal S1 and S2 GI Palpation (GI): Soft to palpation, nontender, no hepatomegaly and no splenomegaly Auscultation: normal bowel sounds Skin General skin exam: no rashes or lesions noted and dry skin Neuro General: oriented to person, oriented to place and oriented to time Cranial nerves: Yes Equal, round and reactive pupils present Speech: No Abnormal speech present Gait exam (Neuro): Normal gait present Motor exam (neuro): no tremor noted Extrem Right upper extremity: full ROM Left upper extremity: full ROM Right lower extremity: full ROM; no edema Left lower extremity: full ROM; no edema Psych Mental Status: mental status grossly normal Speech and movement: Normal speech and movement present Affect: normal affect Attitude: cooperative Thought process: Normal thought process present Immunizations Boostrix Tdap 2.5 Lf unit-8 mcg-5 Lf/0.5 mL intramuscular syringe Performing Provider: Eddie Blas PA-C [facility] Administered by: NAVNEET Zhu on 01/07/25 09:24 Dose Route Admin Location Dispensed Lot Number Expiration Date NDC [employer] 0.5 mL IM Left Deltoid 0.5 mL [id number] 03/07/27 15351-515-87 [employer] VIS Given Date VIS Provided VIS Publication Date 01/07/25 Single Vaccine 21 Eligibility Eligibility Date Funding Source Not [facility] Eligible 01/07/25 Private Coding Level of Care Code Est Pt Level 4 (12465) Diagnoses Primary hypertension I10 Hypertension type: primary hypertension Class 3 obesity E66.813 Additional Codes SUBHASH-7 Assessment Billing - SUBHASH-7 Assessment Tool: SUBHASH-7 Assessment 03831 ([id number]) PHQ-9 - 13345 - PHQ-9 Billing: Yes ([id number]) Assessment & Plan Assessment & Plan (1) HTN (hypertension): Code(s): I10 - Essential (primary) hypertension Category: Medical Qualifiers: Hypertension type: primary hypertension Qualified Code(s): I10 - Essential (primary) hypertension Plan: Initiate lisinopril 10 mg once daily. Monitor blood pressure regularly to assess the effectiveness of treatment. Consider lifestyle modifications to include dietary changes and improved sleep patterns. (2) Class 3 obesity: Code(s): E66.813 - Obesity, class 3 Category: Medical Plan: Patient understands BMI is over 40 and work on being more physically active and adapting to better eating habits to reduce his weight Orders: Orders TDaP Immunization Today Z23 - Encounter for immunization Prostate Specific Antigen Scr Today M76.61 - Achilles tendinitis, right leg, Z12.5 - Encounter for screening for malignant neoplasm of prostate Medications: Changed From lisinopril 10 mg PO DAILY 30 days 30 tabs 3RF I10 - Essential (primary) hypertension To lisinopril 10 mg PO DAILY 90 tabs 2RF 90 days I10 - Essential (primary) hypertension Discontinued meloxicam Discontinued Reason: Doctor's Order 15 mg PO DAILY 30 days 30 tabs 0RF M76.61 - Achilles tendinitis, right leg Patient Instructions: Goal: Blood pressure to be below 140/90 Barriers: Adherence to physical activity and healthy eating habits
[2025-01-07 08:56] VITALS: BP 142/96; PULSE 80; TEMP 36.3; O2SAT 95; BMI 47.8
== END 2025-01-07 09:27 | disposition home or self-care (01) ==
PROVIDERS: PCP Physician Assistant; Visit Provider Physician Assistant
DX: I10 Essential (primary) hypertension (principal); E66.813 Obesity, class 3; Z68.42 Body mass index [BMI] 45.0-49.9, adult; Z23 Encounter for immunization

== ENCOUNTER → 2025-01-07 08:44 | Outpatient (BNVA) | payer OTHER, SELFPAY | PROVIDERS: PCP Physician Assistant; Visit Provider Physician Assistant | DX: I10 Essential (primary) hypertension (principal); Z23 Encounter for immunization; E66.813 Obesity, class 3; Z68.42 Body mass index [BMI] 45.0-49.9, adult | CPT/HCPCS: 90471; 90715; 96127 ==

== ENCOUNTER 2025-02-05 10:21 | Outpatient (REF) | payer OTHER, SELFPAY ==
[2025-02-05 11:19] LABS: Hematocrit 45.9 % (42.0-52.0); Hemoglobin 15.9 g/dl (14.0-18.0); Mean Corpuscular HGB Conc 34.6 g/dl (31.0-36.0); Mean Corpuscular Hemoglobin 29.2 pg (27.0-33.0); Mean Corpuscular Volume 84.2 fL (80.0-98.0); Mean Platelet Volume 10.4 fL (9.4-12.4); Platelet Count 275 X10*3/uL (160-400); Red Blood Count 5.45 X10*6/uL (4.60-5.80); Red Cell Distribution Width 13.1 % (11.0-16.0); White Blood Count 6.2 X10*3/uL (4.8-10.8)
[2025-02-05 12:09] LABS: Alanine Aminotransferase 72 U/L (0-40); Albumin Level 3.8 g/dL (3.5-5.0); Alkaline Phosphatase 52 U/L (39-117); Anion Gap 9 (12-20); Aspartate Amino Transferase 30 U/L (5-37); Bilirubin Total 0.4 mg/dL (0.0-1.0); Blood Urea Nitrogen 13 mg/dL (9-16); Calcium 9.8 mg/dL (8.4-10.2); Carbon Dioxide 25 mmol/L (22-29); Chloride 111 mmol/L (96-108); Estimated Glomerular Filt Rate > 60; Glucose Fasting 104 mg/dL (60-99); Potassium 4.6 mmol/L (3.3-5.1); Sodium 140 mmol/L (135-145); Total Protein 6.6 g/dL (6.5-8.0)
[2025-02-05 12:10] LABS: Prostate Specific Antigen Scr 0.95 ng/mL (<0.05-4.0)
[2025-02-05 14:50] LABS: Creatinine Urine 138.04 mg/dL; Microalbumin Urine < 5.0 mg/L
== END 2025-02-05 10:22 | disposition home or self-care (01) ==
LOC: HO.LAB 10:21
PROVIDERS: PCP Physician Assistant; Visit Provider Physician Assistant
DX: I10 Essential (primary) hypertension (principal); Z12.5 Encounter for screening for malignant neoplasm of prostate; M76.61 Achilles tendinitis, right leg
CPT/HCPCS: 36415; 80053; 82043; 82570; 84153; 85027

== ENCOUNTER 2025-03-04 11:47 | Outpatient (AMB) | payer OTHER, SELFPAY ==
[2025-03-04 11:50] VITALS: BP 142/92; PULSE 96; TEMP 36.3; O2SAT 96; BMI 49.1
--- NOTE | 2025-03-04 11:50 | MHC.PC.OV ---
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 Patient's past medical history significant for hypertension, obesity, Torres. Concern--> concerns related to suspected gastroesophageal reflux disease (GERD) and difficulty burping. He reports a sensation of a vacuum in his chest, more noticeable at night when lying down. Despite feeling pressure, he does not experience pain. This symptom has become more frequent, occurring daily, whereas it was occasional in the previous year. His condition temporarily alleviates when he sits or stands up, but recurs when lying down or sitting in certain positions, suggesting a positional component. He attempted to relieve symptoms with carbonated drinks without success. He has a history of treating acid reflux with Prilosec and Nexium. .. Class 3 Obesity: Has gained a few lb since last office visit. He reports dietary indiscretion having more bread than usual.. He otherwise admits that overall his diet is poor. Hypertension: Patient's blood pressure slightly elevated today in office. He reports that home his blood pressures are 110-120 systolic. He is adherent to the use of lisinopril 10 mg daily. Otherwise he denies any headaches, chest pain, palpitations or dizziness. [facility] Surgical History No pertinent past surgical history Family History Mother Hypertension Mental health disorder Father Diabetes Social History Housing: House Alcohol intake: never Patient Tobacco Use Status: Never used Tobacco Tobacco use type: Cigarette e-Cigarette/Vaping Use: Never Used Second Hand Smoke Exposure: No service: No Current occupational status: employed Current occupation: [employer] Current occupational exposures/hazards: No Cognitive needs: No Hearing needs: No Vision needs: No Questionnaire Thrive Questionnaire Date Thrive assessed: 01/07/25 AUDIT C Alcohol Use Questionnaire (AUDIT-C) 3. How often do you have six or more drinks on one occasion?: Never Total Score: 0 SUBHASH-7 AMB Questionnaire SUBHASH-7 Date SUBHASH - 7 assessed: 01/07/25 Source: Developed by Drs. Danny Connolly, Ramonita Flores, Woody Buchanan and colleagues, with an educational cleopatra from [employer]. Review of Systems Const Denies headache(s) Eyes Denies loss of vision ENT Denies vertigo, Denies dizziness, Denies headache(s) and Denies sore throat Card Denies chest pain, Denies leg edema and Denies lightheadedness Resp Denies cough, Denies hemoptysis and Denies wheezing GI Denies abdominal pain, Denies melena, Denies constipation, Denies diarrhea and Denies vomiting Denies dysuria, Denies urinary frequency and Denies urinary urgency Musc Denies arthralgias, Denies joint swelling, Denies numbness and Denies tingling Neuro Denies Abnormal speech present, Denies behavioral changes, Denies vertigo, Denies dizziness, Denies headache(s), Denies loss of vision, Denies memory loss, Denies numbness and Denies tingling Psych Denies anxiety, Denies behavioral changes, Denies depression, Denies memory loss and Denies panic attacks Monster/Lymph Denies easy bleeding and Denies easy bruising Aller/Immun Denies wheezing Physical exam (Primary Care) Vital Signs: Last Vital Signs Temp 97.3 F 03/04/25 11:50 Pulse 96 03/04/25 11:50 BP 142/92 H 03/04/25 11:50 Pulse Ox 96 03/04/25 11:50 Oxygen Delivery Method Room Air 03/04/25 11:50 Care Plan Goal for BP management: Continue lisinopril 10 mg and work on lifestyle and dietary modifications. Next steps: Continue monitoring blood pressure and work weight reduction BMI result Body Mass Index 49.1 BMI Assessment/Plan discussion: High BMI High, discussed plan: lifestyle, weight reduction, dietary and physical activity Tobacco/Smoking Status: Tobacco use Status Tobacco use date assessed 01/07/25 03/04/25 11:52 Patient Tobacco Use Status Never used Tobacco 03/04/25 11:52 Tobacco use type Cigarette 03/04/25 11:52 e-Cigarette/Vaping Use Never Used 03/04/25 11:52 Thrive Assessment: Date of Thrive Assessment Date Thrive assessed 01/07/25 03/04/25 11:52 Const General: healthy appearing, no acute distress, alert and awake Nutritional Appearance: well nourished Orientation/consciousness: oriented to person, oriented to place and oriented to time HENMT Ears: TM's normal bilaterally General nose exam: Normal nasal mucous membranes and turbinates present Eyes Conjunctivae: conjunctivae normal Sclerae: sclerae normal Pupils: Equal, round and reactive pupils present Neck Neck: Yes no lymphadenopathy and Yes no JVD Thyroid: Thyroid normal Carotids: no bruits Resp Effort & Inspection: normal respiratory effort and not tachypneic Auscultation: no crackles, no rales, no rhonchi and no wheezes Cardio Rate: regular rate Rhythm: regular rhythm Heart sounds: no murmurs and normal S1 and S2 GI Palpation (GI): Soft to palpation, nontender, no hepatomegaly and no splenomegaly Auscultation: normal bowel sounds Skin General skin exam: no rashes or lesions noted and dry skin Neuro General: oriented to person, oriented to place and oriented to time Cranial nerves: Yes Equal, round and reactive pupils present Speech: No Abnormal speech present Gait exam (Neuro): Normal gait present Motor exam (neuro): no tremor noted Extrem Right upper extremity: full ROM Left upper extremity: full ROM Right lower extremity: full ROM; no edema Left lower extremity: full ROM; no edema Psych Mental Status: mental status grossly normal Speech and movement: Normal speech and movement present Affect: normal affect Attitude: cooperative Thought process: Normal thought process present Coding Level of Care Code Est Pt Level 4 (24840) Diagnoses Primary hypertension I10 Hypertension type: primary hypertension Class 3 obesity E66.813 Gastroesophageal reflux disease without esophagitis K21.9 Esophagitis presence: without esophagitis Esophageal dysphagia R13.19 Dysphagia type: esophageal phase Assessment & Plan Assessment & Plan (1) HTN (hypertension): Code(s): I10 - Essential (primary) hypertension Category: Medical Qualifiers: Hypertension type: primary hypertension Qualified Code(s): I10 - Essential (primary) hypertension Plan: Patient's blood pressure slightly elevated today in office. Continue lisinopril 10 mg once daily. Monitor blood pressure regularly to assess the effectiveness of treatment. Consider lifestyle modifications to include dietary changes and improved sleep patterns. (2) Class 3 obesity: Code(s): E66.813 - Obesity, class 3 Category: Medical Plan: Unfortunately has gained weight since last office visit to which he attributes to dietary indiscretion, Patient understands BMI is over 40 and work on being more physically active and adapting to better eating habits to reduce his weight (3) GERD (gastroesophageal reflux disease): Code(s): K21.9 - Gastro-esophageal reflux disease without esophagitis Category: Medical Qualifiers: Esophagitis presence: without esophagitis Qualified Code(s): K21.9 - Gastro-esophageal reflux disease without esophagitis Plan: Prescribe or recommend [id number] famotidine (Pepcid) to manage GERD symptoms. A barium swallow study is planned to assess any potential anatomical issues such as hiatal hernia. Emphasize dietary modifications and weight management to reduce symptoms. (4) Dysphagia: Code(s): R13.10 - Dysphagia, unspecified Category: Medical Qualifiers: Dysphagia type: esophageal phase Qualified Code(s): R13.19 - Other dysphagia Plan: Plan a barium swallow study to validate suspected hiatal hernia. Continue antacid therapy with Pepcid and suggest lifestyle adjustments to manage discomfort. Orders: Orders FL barium swallow Today K21.9 - Gastro-esophageal reflux disease without esophagitis, R13.10 - Dysphagia, unspecified Medications: New famotidine 20 mg PO DAILY 30 days 30 tabs 2RF K21.9 - Gastro-esophageal reflux disease without esophagitis
== END 2025-03-04 12:20 | disposition home or self-care (01) ==
LOC: HO.HMCH 11:47
PROVIDERS: PCP Physician Assistant; Visit Provider Physician Assistant
DX: I10 Essential (primary) hypertension (principal); E66.813 Obesity, class 3; Z68.42 Body mass index [BMI] 45.0-49.9, adult; K21.9 Gastro-esophageal reflux disease without esophagitis; R13.19 Other dysphagia

== ENCOUNTER → 2025-03-04 11:47 | Outpatient (BNVA) | payer OTHER, SELFPAY | PROVIDERS: PCP Physician Assistant; Visit Provider Physician Assistant | DX: Z13.89 Encounter for screening for other disorder (principal) ==

== ENCOUNTER 2025-06-05 08:09 | Outpatient (REF) | payer OTHER, SELFPAY ==
--- NOTE | ~2025-06-05 | FL_ITS ---
EXAMINATION: XR BARIUM SWALLOW CLINICAL INFORMATION: Gastroesophageal reflux disease without esophagitis. COMPARISON: None available. TECHNIQUE: Routine upper GI contrast study was performed in upright and lying position following oral administration of thick barium and effervescent granules. Subsequently coated crackers was administered orally and fluoroscopy imaging performed. FINDINGS: Following oral administration of thick barium and effervescent granules there is normal propagation of bolus from the oral cavity through the pharynx, esophagus into stomach without any evidence of obstruction, narrowing or stricture. There is no extrinsic compression seen. On placing patient supine there is a large gastroesophageal reflux without hiatal hernia. On oral administration of saltine crackers coated with barium there is normal propagation of solid food from the oral cavity through the pharynx, esophagus into stomach without obstruction. There is no laryngeal penetration or aspiration. Minimal retention of barium seen in the valleculae and piriform sinuses. FLUOROSCOPY TIME: 2 minute 22 seconds DOSE AREA PRODUCT: [id number] uGy-m2 (microgray-meter squared) FL/FL barium swallow IMPRESSION: Large gastroesophageal reflux in supine lying position without hiatal hernia. Rest of the barium swallow exam is unremarkable. Electronically signed by: Pino Olea MD 06/05/2025 01:42 PM EDT
== END 2025-06-05 08:10 | disposition home or self-care (01) ==
LOC: HO.XRAY 08:09
PROVIDERS: PCP Physician Assistant; Visit Provider Physician Assistant
DX: R13.10 Dysphagia, unspecified (principal); K21.9 Gastro-esophageal reflux disease without esophagitis
CPT/HCPCS: 74220; 74221

== ENCOUNTER → 2025-06-05 08:11 | Outpatient (BNV) | payer OTHER, SELFPAY | PROVIDERS: PCP Physician Assistant; Visit Provider Radiology Diagnostic Radiology | DX: K21.9 Gastro-esophageal reflux disease without esophagitis (principal) | CPT/HCPCS: 74221 ==

== ENCOUNTER 2025-07-09 14:19 | Outpatient (AMB) | payer OTHER, SELFPAY ==
--- NOTE | 2025-07-09 14:37 | MHC.PC.OV ---
Vital Signs 07/09/25 14:42 Height 5 ft 10 in Weight 337 lb 8 oz BMI 48.4 BP 130/88 Blood Pressure Location Lt brachial Position Sitting Pulse 92 Pulse Source Pulse Oximeter Temp 97.1 F Temp Source Temporal Artery Scan Pulse Oximetry (%) 98 Oxygen Delivery Method Room Air Intake Visit Reasons: Annual Exam Allergies amlodipine Adverse Reaction (Intermediate, Verified 07/09/25 14:51) ineffective CT dye Allergy (Unknown, Uncoded 07/09/25 14:51) shellfish allergy nuts Allergy (Unknown, Uncoded 07/09/25 14:51) itching shellfish Allergy (Unknown, Uncoded 07/09/25 14:51) unknown, +allergy test Medication List - Last Reconciled 07/09/25 by Eddie Blas PA-C famotidine 20 mg PO DAILY 30 days lisinopril 10 mg PO DAILY 90 days Tobacco use date assessed: 07/09/25 Dental Screening Dental Screen Date: 07/09/25 Did you have a dental visit in the last 12 months?: Yes Did you have a dental problem in the last 6 months where you did not have access to dental care?: No Was dental information given to patient?: Patient has dentist HPI Annual Exam HPI Details Patient is a 49-year-old male here today for routine annual physical Patient's past medical history significant for hypertension, obesity, Torres. Concern--> concerns related to suspected gastroesophageal reflux disease (GERD) and difficulty burping. He reports a sensation of a vacuum in his chest, more noticeable at night when lying down. Despite feeling pressure, he does not experience pain. This symptom has become more frequent, occurring daily, whereas it was occasional in the previous year. His condition temporarily alleviates when he sits or stands up, but recurs when lying down or sitting in certain positions, suggesting a positional component. He attempted to relieve symptoms with carbonated drinks without success. He has a history of treating acid reflux with Prilosec and Nexium. .. Class 3 Obesity: Has lost a few lb since last office visit.. He reports dietary indiscretion having more bread than usual.. He otherwise admits that overall his diet is poor. Hypertension: Patient's blood pressure acceptable today in office. He continues with consistent use of lisinopril 10 mg.. He reports that home his blood pressures are 110-120 systolic. Otherwise he denies any headaches, chest pain, palpitations or dizziness. Colon cancer screening: Cologuard done in 2023 normal repeat 3 years .. Vaccines: Up-to-date with COVID vaccine, needs new tetanus vaccine, considering flu vaccine [facility] Surgical History No pertinent past surgical history Family History Mother Hypertension Mental health disorder Father Diabetes Social History Housing: House Alcohol intake: never Patient Tobacco Use Status: Never used Tobacco Tobacco use type: Cigarette e-Cigarette/Vaping Use: Never Used Second Hand Smoke Exposure: No service: No Current occupational status: employed Current occupation: [employer] home Current occupational exposures/hazards: No Cognitive needs: No Hearing needs: No Vision needs: No Questionnaire PHQ-9 Over the last 2 weeks, how often have you been bothered by any of the following problems? 1. Little interest or pleasure in doing things: not at all 2. Feeling down, depressed, or hopeless: not at all 3. Trouble falling or staying asleep, or sleeping too much: not at all 4. Feeling tired or having little energy: not at all 5. Poor appetite or overeating: not at all 6. Feeling bad about yourself - or that you are a failure or have let yourself or your family down: not at all 7. Trouble concentrating on things, such as reading the newspaper or watching television: not at all 8. Moving or speaking so slowly that other people could have noticed. Or the opposite - being so fidgety or restless that you have been moving around a lot more than usual: not at all 9. Thoughts that you would be better off or of hurting yourself in some way: not at all Total score: 0 Depression Screening Interpretation: Negative Depression Screening Done: Yes 83933 - PHQ-9 Billing: Yes Source: Developed by Drs. Danny Connolly, Ramonita Flores, Woody Buchanan and colleagues, with an educational cleopatra from [employer]. Thrive Questionnaire Date Thrive assessed: 07/08/25 I am a: Patient What is your living situation today?: I have a steady place to live Within the past 12 months, did the food you bought not last and you didn't have the money to get more?: Never true Within the past 12 months, did you worry whether your food would run out before you got money to buy more?: I choose not to answer this question Do you have trouble paying for medicines?: No Do you have trouble getting transportation to medical appointments?: No Do you have trouble paying your heating and electricity bill?: No Do you have trouble taking care of your child, family member or friend?: No Do you have trouble with day-to-day activities such as bathing, preparing meals, shopping, managing finances, etc.?: No Are you currently unemployed and looking for a job?: No Are you interested in more education?: I choose not to answer this question Please select the resources that you would like help with: None Currently or been in a relationship where the following occur: I choose not to answer THRIVE Score: 0 AUDIT C Alcohol Use Questionnaire (AUDIT-C) 1. How often do you have a drink containing alcohol?: Never 3. How often do you have six or more drinks on one occasion?: Never Total Score: 0 SUBHASH-7 AMB Questionnaire SUBHASH-7 Date SUBHASH - 7 assessed: 01/07/25 Feeling nervous, anxious, or on edge: 0 = Not at all Not being able to stop or control worryin = Not at all Worrying too much about different things: 0 = Not at all Trouble relaxin = Not at all Being so restless that it is hard to sit still: 0 = Not at all Becoming easily annoyed or irritable: 0 = Not at all Feeling afraid as if something awful might happen: 0 = Not at all Total SUBHASH-7 score (0-4 normal; 5-9 mild; 10-14 moderate; 15-21 severe): 0 Source: Developed by Drs. Danny Connolly, Ramonita Flores, Woody Buchanan and colleagues, with an educational cleopatra from [employer]. SUBHASH-7 Assessment Billing SUBHASH-7 Assessment Tool: SUBHASH-7 Assessment 63746 Review of Systems Const Denies body aches, Denies chills, Denies excessive sweating, Denies fatigue, Denies fever(s) and Denies headache(s) Eyes Denies blurry vision ENT Denies dysphagia, Denies vertigo, Denies dizziness, Denies headache(s), Denies hearing loss and Denies tinnitus Card Denies chest pain, Denies chest pain with activity, Denies syncope, Denies irregular heart rhythm and Denies dyspnea Resp Denies chest congestion, Denies cough, Denies hemoptysis, Denies dyspnea and Denies wheezing GI Denies abdominal pain, Denies melena, Denies hematochezia, Denies coffee ground emesis, Denies dysphagia, Denies diarrhea, Denies nausea and Denies vomiting Denies difficulty urinating, Denies dysuria, Denies urinary frequency, Denies urinary hesitancy and Denies urinary urgency Musc Denies arthralgias, Denies limited range of motion, Denies muscle cramps and Denies muscle weakness Skin/Breast Denies rash and Denies skin ulcer Neuro Denies Abnormal speech present, Denies confusion, Denies vertigo, Denies dizziness, Denies syncope, Denies headache(s), Denies memory loss and Denies seizure-like activity Psych Denies anxiety, Denies confusion, Denies depression, Denies memory loss, Denies panic attacks and Denies paranoia Endo Denies excessive sweating, Denies fatigue, Denies flushing, Denies polydipsia and Denies polyuria Aller/Immun Denies wheezing Physical exam (Primary Care) Vital Signs: Last Vital Signs Temp 97.1 F 07/09/25 14:42 Pulse 92 07/09/25 14:42 BP 130/88 07/09/25 14:42 Pulse Ox 98 07/09/25 14:42 Oxygen Delivery Method Room Air 07/09/25 14:42 Care Plan Goal for BP management: Continue on lisinopril 10 mg Next steps: Continue working on weight reduction to better control his blood pressure. Goal blood pressures to be below 140/90 BMI result Body Mass Index 48.4 BMI Assessment/Plan discussion: High BMI High, discussed plan: lifestyle, weight reduction, dietary and physical activity Tobacco/Smoking Status: Tobacco use Status Tobacco use date assessed 07/09/25 07/09/25 14:46 Patient Tobacco Use Status Never used Tobacco 07/09/25 14:38 Tobacco use type Cigarette 07/09/25 14:38 e-Cigarette/Vaping Use Never Used 07/09/25 14:38 PHQ-9: PHQ-9 Score PHQ-9: Total score 0 07/09/25 15:13 Depression Screening Interpretation: Negative Thrive Assessment: Date of Thrive Assessment Date Thrive assessed 07/08/25 07/09/25 14:38 Currently or been in a relationship where the following occur: I choose not to answer Const General: cooperative, comfortable, no acute distress, alert and awake; No confusion Orientation/consciousness: oriented to person, oriented to place, patient oriented x3 and No confusion HENMT Head: Yes normocephalic Ears: external ears normal and TM's normal bilaterally Face and sinus: No sinus tenderness Mouth: Normal oral and palatal mucosa present and tongue normal Teeth and gingiva: dentition normal and gingiva normal Throat: Yes posterior oropharynx normal, Yes tonsils normal and Yes uvula midline Eyes Conjunctivae: conjunctivae normal Sclerae: sclerae normal Pupils: Equal, round and reactive pupils present EOM: EOMs intact bilaterally Direct Ophthalmoscopy: No no photophobia Neck Neck: Yes no lymphadenopathy, No tender and Yes no JVD Thyroid: Thyroid normal Carotids: no bruits Chest Chest palpation & inspection: no tenderness Resp Effort & Inspection: normal respiratory effort, no audible wheezes, not labored and no stridor Auscultation: no crackles, no rales, no rhonchi and no wheezes Cardio Jugular venous distension: no JVD Rate: regular rate, not bradycardic and not tachycardic Rhythm: regular rhythm Bruits: no carotid bruits Peripheral pulses: Peripheral pulses 2+ throughout GI Inspection: Yes normal to inspection, No abdominal wall ecchymosis and No visible herniation Palpation (GI): Soft to palpation, nontender, no guarding, not rigid and No hepatosplenomegaly present Auscultation: normoactive bowel sounds General: Yes no CVA tenderness Back/Spine/Pelvis Back: no CVA tenderness and No back tenderness Cervical Spine: cervical ROM normal Thoracic/Lumbar Spine: thoracic and lumbar spine normal to inspection, straight leg raise negative bilaterally, No thoraco-lumbar ROM limited and No lumbar spinal tenderness Skin Lesions: no lesions Rashes: no rashes Wounds: no wounds Neuro General: oriented to person, oriented to place, patient oriented x3, CN's II-XI intact bilaterally and No confusion Cranial nerves: Yes Equal, round and reactive pupils present and Yes Normal accommodation reflex present Cognition (Neuro): normal cognition Speech: No Abnormal speech present Gait exam (Neuro): Normal gait present Motor exam (neuro): 5/5 motor strength present throughout Extrem Right upper extremity: full ROM; no cyanosis Left upper extremity: full ROM; no cyanosis Right lower extremity: no edema Left lower extremity: no edema Psych Appearance: grossly normal Mental Status: mental status grossly normal Affect: normal affect Attitude: cooperative Thought process: Normal thought process present Coding Level of Care Code Est Pt Prev Care 40-64y(47642) Diagnoses Annual physical exam Z00.00 Primary hypertension I10 Hypertension type: primary hypertension Class 3 obesity E66.813 Gastroesophageal reflux disease without esophagitis K21.9 Esophagitis presence: without esophagitis Additional Codes SUBHASH-7 Assessment Billing - SUBHASH-7 Assessment Tool: SUBHASH-7 Assessment 87828 ([id number]) PHQ-9 - 43658 - PHQ-9 Billing: Yes ([id number]) Assessment & Plan Assessment & Plan (1) Annual physical exam: Code(s): Z00.00 - Encounter for general adult medical examination without abnormal findings Category: Medical Plan: as per HPI (2) HTN (hypertension): Code(s): I10 - Essential (primary) hypertension Category: Medical Qualifiers: Hypertension type: primary hypertension Qualified Code(s): I10 - Essential (primary) hypertension Plan: Patient's blood pressure acceptable today. Continue lisinopril 10 mg once daily. Monitor blood pressure regularly to assess the effectiveness of treatment. Consider lifestyle modifications to include dietary changes and improved sleep patterns. (3) Class 3 obesity: Code(s): E66.813 - Obesity, class 3 Category: Medical Plan: Unfortunately has gained weight since last office visit to which he attributes to dietary indiscretion, Patient understands BMI is over 40 and work on being more physically active and adapting to better eating habits to reduce his weight (4) GERD (gastroesophageal reflux disease): Code(s): K21.9 - Gastro-esophageal reflux disease without esophagitis Category: Medical Qualifiers: Esophagitis presence: without esophagitis Qualified Code(s): K21.9 - Gastro-esophageal reflux disease without esophagitis Plan: The patient will begin a trial of omeprazole for two to three weeks to assess improvement in symptoms. A referral for a gastroenterology consultation has been made to consider endoscopy for further evaluation. Orders: Orders Hemoglobin A1c 07/09/25 I10 - Essential (primary) hypertension, R73.01 - Impaired fasting glucose Hepatitis B,C Profile 07/09/25 Z11.3 - Encounter for screening for infections with a predominantly sexual mode of transmission HIV Ab/Ag 07/09/25 Z11.3 - Encounter for screening for infections with a predominantly sexual mode of transmission Comprehensive [place]. Panel Fast 07/09/25 I10 - Essential (primary) hypertension, R73.01 - Impaired fasting glucose Complete Blood Count no Diff 07/09/25 I10 - Essential (primary) hypertension, R73.01 - Impaired fasting glucose Syphilis Screen 07/09/25 Z11.3 - Encounter for screening for infections with a predominantly sexual mode of transmission CT NG by PCR Urine 07/09/25 Z11.3 - Encounter for screening for infections with a predominantly sexual mode of transmission Referrals Gastroenterology Referral K21.9 - Gastro-esophageal reflux disease without esophagitis Medications: New omeprazole 20 mg PO DAILY 30 caps 1RF 30 days K21.9 - Gastro-esophageal reflux disease without esophagitis Discontinued famotidine Discontinued Reason: Doctor's Order 20 mg PO DAILY 30 days 30 tabs 2RF K21.9 - Gastro-esophageal reflux disease without esophagitis
[2025-07-09 14:42] VITALS: BP 130/88; PULSE 92; TEMP 36.2; O2SAT 98; BMI 48.4
== END 2025-07-09 15:27 | disposition home or self-care (01) ==
LOC: HO.HMCH 14:20
PROVIDERS: PCP Physician Assistant; Visit Provider Physician Assistant
DX: Z00.00 Encounter for general adult medical examination without abnormal findings (principal); I10 Essential (primary) hypertension; E66.813 Obesity, class 3; Z68.42 Body mass index [BMI] 45.0-49.9, adult; K21.9 Gastro-esophageal reflux disease without esophagitis

== ENCOUNTER → 2025-07-09 14:19 | Outpatient (BNVA) | payer OTHER, SELFPAY | PROVIDERS: PCP Physician Assistant; Visit Provider Physician Assistant | DX: Z00.00 Encounter for general adult medical examination without abnormal findings (principal); K21.9 Gastro-esophageal reflux disease without esophagitis; I10 Essential (primary) hypertension; E66.813 Obesity, class 3; Z68.42 Body mass index [BMI] 45.0-49.9, adult | CPT/HCPCS: 96127 ==

== ENCOUNTER 2025-07-18 09:17 | Outpatient (REF) | payer OTHER, SELFPAY ==
[2025-07-18 10:05] LABS: Hematocrit 45.1 % (42.0-52.0); Hemoglobin 15.5 g/dl (14.0-18.0); Mean Corpuscular HGB Conc 34.4 g/dl (31.0-36.0); Mean Corpuscular Hemoglobin 29.4 pg (27.0-33.0); Mean Corpuscular Volume 85.4 fL (80.0-98.0); NRBC Abs Auto 0.000 X10*3/uL (0.0-0.012); NRBC Pct Auto 0.0 /100WBC (0.0-0.2); Platelet Count 274 X10*3/uL (160-400); Red Blood Count 5.28 X10*6/uL (4.60-5.80); White Blood Count 5.7 X10*3/uL (4.8-10.8)
[2025-07-18 10:20] LABS: Hemoglobin A1C 145.1886 umol/L; Total Hemoglobin (HGBA1C) 3961.5124 umol/L
[2025-07-18 10:34] LABS: Alanine Aminotransferase 70 U/L (0-40); Albumin Level 4.3 g/dL (3.5-5.0); Alkaline Phosphatase 58 U/L (39-117); Anion Gap 12 (12-20); Aspartate Amino Transferase 38 U/L (5-37); Blood Urea Nitrogen 18 mg/dL (9-16); Calcium 10.2 mg/dL (8.4-10.2); Carbon Dioxide 26 mmol/L (22-29); Chloride 111 mmol/L (96-108); Estimated Glomerular Filt Rate > 60; Potassium 4.5 mmol/L (3.3-5.1); Sodium 144 mmol/L (135-145); Total Protein 6.7 g/dL (6.5-8.0)
[2025-07-18 10:52] LABS: HBS Num1 7.76 mIU/mL (0-7.99); HBc Num1 0.06 S/CO (0.00-0.79); HBsAGNum1 0.47 S/CO (0.00-0.99); HIV Num 1 0.16 S/CO (0.00-0.99); Hepatitis B Surface Antigen Negative (Negative); Syphilis Screen Nonreactive (Nonreactive); ~HepC Num1 0.35 S/CO (0.00-0.79); ~Hepatitis B Surface Antibody NONREACTIVE (Nonreactive); ~Hepatitis C Antibody Nonreactive (Nonreactive)
[2025-07-18 15:10] LABS: CT PCR Urine NOT DETECTED (Not Detect.); NG PCR Urine NOT DETECTED (Not Detect.)
== END 2025-07-18 09:18 | disposition home or self-care (01) ==
LOC: HO.LAB 09:17
PROVIDERS: PCP Physician Assistant; Visit Provider Physician Assistant
DX: Z11.3 Encounter for screening for infections with a predominantly sexual mode of transmission (principal); Z11.4 Encounter for screening for human immunodeficiency virus [HIV]; Z11.59 Encounter for screening for other viral diseases; I10 Essential (primary) hypertension; R73.01 Impaired fasting glucose
CPT/HCPCS: 80053; 83036; 85027; 86704; 86706; 86780; 86803; 87340; 87389; 87491; 87591

== ENCOUNTER 2025-10-02 10:16 | Outpatient (REF) | payer OTHER, SELFPAY ==
--- NOTE | ~2025-10-02 | US_ITS ---
CLINICAL HISTORY: R74.8 - Abnormal levels of other serum enzymes --- Additional Notes or Special Instructions: Ultrasound liver to evaluate for fatty liver disease US abdomen complete with color Doppler Comparison: None Findings: Midline structures including the pancreas aorta and IVC were obscured by bowel gas. Liver is mildly enlargedand diffusely echogenic. Right lobe 19.4 cm length. Hepatic cysts right lobe measuring 1.9 x 2.2 x 2.3 cm. Hypoechoic lesion right lobe measuring 2.3 x 2.2 x 1.9 cm and a isoechoic lesion right lobe measuring 2.2 x 1.9 x 1.9 cm. Common duct 3.0 mm diameter. Physiologic distention of the gallbladder. No gallstones or sludge. No gallbladder wall thickening. No pericholecystic fluid. No sonographic [place] sign. Main portal vein antegrade. Right kidney normal size, 11.7 cm in length. Normal cortical width and echotexture. No solid or cystic renal masses. No nephrolithiasis. No hydronephrosis. Left kidney normal, 13.1 cm in length. Normal cortical width and echotexture. No solid or cystic renal masses. No nephrolithiasis. No hydronephrosis. Spleen measures 11.1 cm. No splenic masses. No ascites. No lymphadenopathy. Impression: 1. Echogenic liver reflecting hepatic steatosis or diffuse hepatocellular disease. Mild hepatomegaly. Indeterminate liver lesions follow-up with multiphase contrast-enhanced MRI. This document has been electronically signed by: Barrera Ramirez MD on 10/03/2025 17:09:18
== END 2025-10-02 10:17 | disposition home or self-care (01) ==
LOC: HO.US 10:16
PROVIDERS: PCP Physician Assistant; Visit Provider Physician Assistant
DX: R74.8 Abnormal levels of other serum enzymes (principal)
CPT/HCPCS: 76700

== ENCOUNTER → 2025-10-02 10:34 | Outpatient (BNV) | payer OTHER, SELFPAY | PROVIDERS: PCP Physician Assistant; Visit Provider Radiology Diagnostic Radiology | DX: R16.0 Hepatomegaly, not elsewhere classified (principal) | CPT/HCPCS: 76700 ==